=== PATIENT | female | born 1985 | race Two or more races ===

== ENCOUNTER 2016-11-28 21:19 | Emergency (ER) | payer SELFPAY ==
[~2016-11-28] VITALS: Ht 165.1 cm; Wt 85.3 kg
[2016-11-28 21:30] VITALS: BP 110/76
[2016-11-28] MEDS ORDERED: Acetaminophen 500mg (ES) tab PO ONE (21:30)
[2016-11-28 23:30] VITALS: BP 112/74
[2016-11-28] MEDS ORDERED: IBUPROFEN600 MG ORAL (23:35)
[2016-11-28] MEDS ORDERED: ACETAMINOPHEN-1 EAC1 ORAL (23:35)
[2016-11-28 23:40] VITALS: BP 112/74
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
--- NOTE | 2016-11-29 11:36 | Diagnostic Imaging Report ---
Indication: PAIN Technique: 3 views right foot Comparison: none Findings: No acute fractures. No dislocations. There is a small plantar spur Impression: Negative This agrees with the preliminary interpretation provided by the emergency room physician
--- NOTE | 2016-11-29 11:38 | Diagnostic Imaging Report ---
Indication: PAIN Technique: 2 views of the right tibia and fibula Comparison: none Findings: No acute fractures. No dislocations. Impression: Negative This agrees with the preliminary interpretation provided by the emergency room physician
--- NOTE | 2016-11-29 12:10 | Diagnostic Imaging Report ---
Indication: PAIN Technique: 3 views of the ankle Comparison: none Findings: No acute fractures. No dislocations. Joint spaces are preserved. Normal mineralization. No radiopaque foreign body. Is a small plantar spur Impression: Negative This agrees with the preliminary interpretation provided by the emergency room physician
== END 2016-11-28 23:40 | disposition home or self-care (01) ==
LOC: EDBD 21:19 → EMR 21:30
DX: S90.31XA Contusion of right foot, initial encounter (principal); V09.9XXA Pedestrian injured in unspecified transport accident, initial encounter; Y93.9 Activity, unspecified; Y92.9 Unspecified place or not applicable
CPT/HCPCS: 36415; 84703; 99284